=== PATIENT | male | born 1990 | race Caucasian/White ===

== ENCOUNTER 2020-03-26 21:46 | Emergency (ER) | payer OTHER ==
--- NOTE | 2020-03-26 22:51 | ED Physician Documentation ---
History of Present Illness - Stated complaint Stated Complaint: RT CALF LAC - Chief complaint Chief Complaint: Laceration - History obtained from History obtained from: Patient - Additonal information Additional information: Patient is a 29-year-old male who was using an ax to cut wood when he acciden tally lacerated his right leg. He denies any other complaints. Review of Systems Constitutional: reports: Reviewed and negative Eyes: reports: Reviewed and negative Ears: reports: Reviewed and negative Nose: reports: Reviewed and negative Throat: reports: Reviewed and negative Cardiac: reports: Reviewed and negative Respiratory: reports: Reviewed and negative GI: reports: Reviewed and negative : reports: Reviewed and negative Skin: reports: Laceration (s) Musculoskeletal: reports: Reviewed and negative Neurologic: reports: Reviewed and negative Psychiatric: reports: Reviewed and negative Endocrine: reports: Reviewed and negative Immunocompromised: reports: Reviewed and negative PD PAST MEDICAL HISTORY - Present Medications Home Medications: Ambulatory Orders Medication Instructions Recorded Confirmed No Known Home Medications 03/27/20 03/27/20 - Allergies Allergies/Adverse Reactions: Allergies Allergy/AdvReac Type Severity Reaction Status Date / Time No Known Drug Allergies Allergy Verified 03/26/20 22:07 PD ED PE NORMAL - Vitals Vital signs reviewed: Yes - General General: Alert and oriented X 3, No acute distress - HEENT HEENT: PERRL - Neck Neck: Supple, no meningeal sign - Cardiac Cardiac: RRR, No murmur - Respiratory Respiratory: Clear bilaterally - Abdomen Abdomen: Normal bowel sounds, Soft, Non tender, Non distended - Derm Derm: Warm and dry - Extremities Extremities: Other (Right lateral leg with a 6 cm laceration, neurovascular intact, compartments soft, no foreign bodies identified.) - Neuro Neuro: Alert and oriented X 3 - Psych Psych: Normal mood, Normal affect - Free text exam Free text exam: Right lower extremity with 6 cm laceration to the lateral aspect of the calf. Able to ambulate able to stand on his toes walk on his heels move all of his phalanges able to internally and externally rotate the ankle as well as invert and anali the ankle and plantar flex and dorsiflex the right foot. Neurovascular intact, compartments soft. PD ED PE EXPANDED - Derm SKin visual: 1 - laceration Results - Vitals Vitals: Vital Signs - 24 hr 03/26/20 03/27/20 22:05 00:46 Temperature 36.8 C 36.9 C Heart Rate 96 105 H Respiratory 18 14 Rate Blood Pressure 149/81 H 150/92 H O2 Saturation 97 98 Oxygen O2 Source Room air Procedures - Laceration (location) Lower extremity right Lateral Length in cm: 6 Wound type: Flap, Into subcut fat, Clean Neurovascular status: Sensory intact, Motor intact, Vascular intact Tendon involvement: Tendon intact Anesthesia: Lidocaine 1% with epi, Volume - enter cc (5) Wound Preparation: Irrigated copiously NS, Wound explored, Other (No foreign bodies identified) Skin layer closure: Nylon, Interrupted, Size #-0 - enter number (4), Sutures - enter # (7) Other: Patient tolerated well, No complications, Neurovascular intact, Dressing applied, Tetanus booster given PD MEDICAL DECISION MAKING - ED course Complexity details: considered differential (Right lateral calf laceration. Cleaned, irrigated tetanus updated. Closed with 7 simple interrupted sutures good wound edge approximation no foreign bodies identified patient tolerated well should follow-up in 7 to 10 days for suture removal) Departure - Departure Disposition: 01 Home, Self Care Clinical Impression: Leg laceration Qualifiers: Encounter type: initial encounter Laterality: right Qualified Code(s): S81.811A - Laceration without foreign body, right lower leg, initial encounter Condition: Stable Instructions: ED Laceration All Follow-Up: your, doctor [Other] - As Needed Comments: Keep wound clean, dry and protected. Follow-up for suture removal in 7 to 10 days. Discharge Date/Time: 03/27/20 00:46
[2020-03-26] MEDS ORDERED: LIDOCAINE 1%-EPI 1:100000 20 ML MDV SUBQ STA (22:56)
[2020-03-26] MEDS ORDERED: TETANUS/DIPHTHERIA/PERTUSSIS 0.5 ML SYRINGE IM ONE (22:56)
[2020-03-27] MEDS ORDERED: BACITRACIN ZINC OINT 1 PACKET TOP STA (00:30)
[2020-03-27 00:47] VITALS: BP 150/92
== END 2020-03-27 00:46 | disposition home or self-care (01) ==
LOC: ED 21:46
DX: S81.811A Laceration without foreign body, right lower leg, initial encounter (principal); W27.0XXA Contact with workbench tool, initial encounter; Y93.89 Activity, other specified; Z23 Encounter for immunization
CPT/HCPCS: 12002; 90471; 99283